=== PATIENT | female | born 1950 | race African-American/Black ===

== ENCOUNTER 2016-09-17 12:41 | Emergency (ER) | payer MEDICARE ==
[2016-09-17 13:07] VITALS: TEMP 98.6; BMI 23.5
[2016-09-17] MEDS ORDERED: NS 1,000 ML IV ONE (13:13)
[2016-09-17 14:11] LABS: AUTOMATED BASOPHIL 1.2 % (0-2); AUTOMATED EOSINOPHIL 1.3 % (0-5); AUTOMATED LYMPH 23.7 % (17-44); AUTOMATED MONOCYTE 8.7 % (3-10); AUTOMATED NEUTROPHIL 65.1 % (45-76); MPV 8.1 fL (7.4-10.4)
[2016-09-17 14:12] LABS: BLOOD UREA NITROGEN 12 MG/DL (7-17); CALCIUM 10.3 MG/DL (8.4-10.2); CALCULATED OSMOLALITY 269 MOs/Kg (270-290); CHLORIDE 99 mEq/L (98-107); GLUCOSE 115 MG/DL (70-99); SODIUM LEVEL 139 mEq/L (137-146); TOTAL PROTEIN 7.6 G/DL (6.3-8.2)
--- NOTE | 2016-09-17 14:22 | DIRPT ---
CLINICAL DATA: Generalized abdominal pain following colonoscopy 2 days prior. Vomiting. EXAM: DG ABDOMEN ACUTE W/ 1V CHEST COMPARISON: None. FINDINGS: PA chest: Lungs are clear. Heart size and pulmonary vascularity are normal. No adenopathy. Supine and upright abdomen: There is moderate stool in the colon. There is no bowel dilatation or air-fluid level suggesting obstruction. No free air apparent. There is a total hip prosthesis on the right. There are small phleboliths in the pelvis. IMPRESSION: Moderate stool in colon. No demonstrable obstruction or free air. No lung edema or consolidation. Electronically Signed By: Christ Meadows III, M.D. On: 09/17/2016 14:19
[2016-09-17 15:06] VITALS: BP 131/60; PULSE 50
--- NOTE | 2016-09-17 15:11 | EDPRACDOC ---
- General Information Chief Complaint: Generalized Weakness Stated Complaint: FEELING OF GOING TO PASS OUT NO CP Time Seen by Provider: 09/17/16 13:13 Information Source: Patient Home Medications: Home Medications Atenolol/Chlorthalidone [Atenolol-Chlorthalidone Tab (100mg/25mg)] 1 tab PO DAILY 12/12/15 Estradiol 1 mg PO DAILY 12/12/15 POTASSIUM CHLORIDE Tablet [K-DUR 20 mEq Tablet*] 20 meq PO BID 12/12/15 Trandolapril 2 mg PO DAILY 12/12/15 Verapamil HCl [Verapamil ER] 240 mg PO DAILY 12/12/15 Calcium Carbonate + Vitamin D [Oscal with Vitamin D] 500 mg PO BIDLS #60 tablet 12/15/15 Bifidobacterium Infantis [Align] 10.5 mg PO DAILY 08/19/16 Ibuprofen 600 mg PO TID PRN 08/19/16 Omeprazole 40 mg PO DAILY 08/19/16 Tramadol HCl [Ultram] 50 - 100 mg PO QID PRN 08/19/16 Trazodone HCl [Desyrel] 50 mg PO QHS PRN 08/19/16 Dicyclomine HCl [Bentyl] 10 mg PO Q6H 09/17/16 Hydrocodone/Acetaminophen [Lortab 5-325 mg Tablet] 1 tab PO Q4H PRN 09/17/16 Allergies/Adverse Reactions: Allergies Allergy/AdvReac Type Severity Reaction Status Date / Time No Known Allergies Allergy Verified 09/17/16 13:03 - History of Present Illness Onset: 2 hours Exact Onset of Symptoms: Unknown Symptoms Started: Reports: Gradually Weakness: Bilateral: Generalized Symptoms: Reports: Weak Associated signs and symptoms:: Reports: None ED Past Medical History - History Reviewed Yes Nurses notes reviewed and agree except as marked - Patient Medical History Cardiac History: Reports: Hypertension, Hypercholesterolemia Musculoskeletal History: Reports: Arthritis Psychological History: Denies: Depression, Substance Use Disorder Systemic History: Denies: Cancer Surgical History: Reports: Hysterectomy - Family Medical History Reports: Hypertension, Diabetes (brother). Denies: Cancer, Stroke, Cardiac Disorders - Social Medical History Smoking Status: Never smoker Social History: Denies: Substance Use Disorder EDM Review of Systems - Review of Systems ROS Negative Except as Marked: Yes All systems reviewed and were negative except as marked - Physical Exam Constitutional: Alert (Awake), No apparent distress Oriented to: Time, Person, Place Last recorded Vital Signs: Last Vital Signs Temp 98.6 F 09/17/16 13:03 Pulse 50 L 09/17/16 15:05 Resp 18 09/17/16 15:05 BP 131/60 09/17/16 15:05 Pulse Ox 99 09/17/16 15:05 Oxygen Pulse Oxygen Saturation 99 O2 Device Room Air Oxygen Flow Rate Fraction of Inspired Oxygen ( FIO2) - HEENT Head: Normal ( normocephalic) Eye Exam: Normal (PERRL, EOMI, Sclera white) Oropharynx: Normal (Pharynx:Moist without exudate,Gums-no swelling) Tympanic Membrane: Normal ENT EAC: Normal TMJ: Normal Nose: No Symptoms Reported (septum midline) Neck: Normal (FROM, trachea at midline) - Respiratory/Cardiovascular Respiratory: Normal - CTA (BBS clear to auscultation without adventitious sounds ) Cardiovascular: Normal (RRR without murmur, gallop or rub) - GI Auscultation: Normal (NABS) Palpation: Normal (Soft,No rebound or guarding, non distended) Tenderness: Non tender Ames's Sign: Negative - Musculoskeletal Back: Normal (Non-Tender) Extremities: Normal (Normal tone, Pulses 2+ No cyanosis or edema, FROM) - Integumentary Skin: Normal, Warm, Dry Lymphatics: Normal (no adenopathy) - Neurologic Memory Impaired: Normal Motor Function: Normal (Normal tone, Pulses 2+ No cyanosis or edema, FROM) Cranial Nerve: Normal (CN II-X11 intact sensation, strength 5/5) Cerebellar: Normal Mood Description: Normal Perception: Normal - Results 09/17/16 13:45 09/17/16 13:45 WBC 8.2 xk/uL (3.8-10.8) 09/17/16 13:45 RBC 3.95 xM/uL (4.20-5.40) L 09/17/16 13:45 Hgb 12.2 g/dL (12.0-16.0) 09/17/16 13:45 Hct 36.7 % (36-47) 09/17/16 13:45 MCV 93 fL (81-99) 09/17/16 13:45 MCH 30.9 pg (27-32) 09/17/16 13:45 MCHC 33.2 g/dl (33-36) 09/17/16 13:45 RDW 12.2 % (11.5-14.5) 09/17/16 13:45 Plt Count 259 xk/uL (130-400) 09/17/16 13:45 MPV 8.1 fL (7.4-10.4) 09/17/16 13:45 Neut % (Auto) 65.1 % (45-76) 09/17/16 13:45 Lymph % (Auto) 23.7 % (17-44) 09/17/16 13:45 [place] % (Auto) 8.7 % (3-10) 09/17/16 13:45 Eos % (Auto) 1.3 % (0-5) 09/17/16 13:45 Baso % (Auto) 1.2 % (0-2) 09/17/16 13:45 Absolute Neuts (auto) 5.33 xk/uL (1.7-8.2) 09/17/16 13:45 Absolute Lymphs (auto) 1.89 xk/uL (0.65-4.75) 09/17/16 13:45 Sodium 139 mEq/L (137-146) 09/17/16 13:45 Potassium 3.4 mEq/L (3.5-5.1) L 09/17/16 13:45 Chloride 99 mEq/L (98-107) 09/17/16 13:45 Carbon Dioxide 31 mMOL/L (22-33) 09/17/16 13:45 Anion Gap 12 mEq/L (8-16) 09/17/16 13:45 BUN 12 MG/DL (7-17) 09/17/16 13:45 Creatinine 0.90 MG/DL (0.52-1.04) 09/17/16 13:45 Estimated GFR (MDRD) > 60 mL/min (>=60) 09/17/16 13:45 Glucose 115 MG/DL (70-99) H 09/17/16 13:45 Calculated Osmolality 269 MOs/Kg (270-290) L 09/17/16 13:45 Calcium 10.3 MG/DL (8.4-10.2) H 09/17/16 13:45 Total Bilirubin 0.4 MG/DL (0.2-1.3) 09/17/16 13:45 AST 27 IU/L (14-36) 09/17/16 13:45 ALT 24 IU/L (9-52) 09/17/16 13:45 Alkaline Phosphatase 59 IU/L (55-165) 09/17/16 13:45 Troponin I < 0.01 ng/mL (<.04) 09/17/16 13:45 Total Protein 7.6 G/DL (6.3-8.2) 09/17/16 13:45 Albumin 4.1 G/DL (3.5-5.0) 09/17/16 13:45 Lab Results 09/17/16 09/17/16 13:45 13:45 WBC 8.2 RBC 3.95 L Hgb 12.2 Hct 36.7 MCV 93 MCH 30.9 MCHC 33.2 RDW 12.2 Plt Count 259 MPV 8.1 Neut % (Auto) 65.1 Lymph % (Auto) 23.7 [place] % (Auto) 8.7 Eos % (Auto) 1.3 Baso % (Auto) 1.2 Absolute Neuts (auto) 5.33 Absolute Lymphs (auto) 1.89 Sodium 139 Potassium 3.4 L Chloride 99 Carbon Dioxide 31 Anion Gap 12 BUN 12 Creatinine 0.90 Estimated GFR (MDRD) > 60 Glucose 115 H Calculated Osmolality 269 L Calcium 10.3 H Total Bilirubin 0.4 AST 27 ALT 24 Alkaline Phosphatase 59 Troponin I < 0.01 Total Protein 7.6 Albumin 4.1 - EKG EKG #1 [place]: Normal Rhythm: NSR Block: None Hypertrophy: None ST: Normal Decision Time to Discharge: 15:30 - Departure Yes I personally saw and evaluated the patient. Disposition: Home Condition: Good Final Diagnosis: Attacks of weakness Instructions: Weakness (General) Education/Counseling Given To: Patient, Family Member Education/Counseling Given Regarding: Diagnosis, Treatment, Prognosis
[2016-09-17 15:38] LABS: AMORPHOUS OCC
[2016-09-17 15:49] LABS: LEUKOCYTES/URINE NEG (NEGATIVE); NITRITE/URINE NEG (NEGATIVE); URINE OCCULT BLOOD NEG (NEG/TRACE)
== END 2016-09-17 15:27 | disposition home or self-care (01) ==
LOC: ED 12:41
DX: R53.1 Weakness (principal)
CPT/HCPCS: 36415; 74022; 80053; 81001; 84484; 85025; 93005; 96360; 96361; 99283